=== PATIENT | female | born 1995 | race Hispanic/Latino ===

== ENCOUNTER → 2022-09-14 | Outpatient (CLI) | payer BC | END | disposition home or self-care (01) | LOC: SHCH 13:22 | PROVIDERS: ATTEND Student in an Organized Health Care Education/Training Program | DX: R07.9 Chest pain, unspecified (principal) | CPT/HCPCS: 93306 ==

== ENCOUNTER 2023-12-26 09:08 | Emergency (ER) | payer OTHER, BC ==
[~2023-12-26] VITALS: Ht 154.9 cm; Wt 43.1 kg
[2023-12-26] MEDS: morPHINE 2 MG SYG ONE (09:51)
[2023-12-26] MEDS: morPHINE 2 MG SYG IM ONE (09:51)
[2023-12-26] MEDS: ceFAZolin SODIUM 1 GM VIAL IVPB SCH (11:31)
[2023-12-26] MEDS ORDERED: CEPH500T PO (11:59)
[2023-12-26] MEDS: NEOMY SULF/BACITRA/POLYMYXIN B 1 EACH PACKET TP ONE (12:02)
[2023-12-26 12:04] VITALS: BP 110/67; PULSE 68; RESP 17; TEMP 98.2; O2SAT 100
[2023-12-26] MEDS: teTANUS/diphthERIA TOXOID [ADULT] 0.5 ML VIAL IM ONE ×2 (12:12→12:15)
== END 2023-12-26 12:51 | disposition home or self-care (01) ==
LOC: EDH 09:08
DX: S68.622A Partial traumatic transphalangeal amputation of right middle finger, initial encounter (principal); Z79.899 Other long term (current) drug therapy; Z98.890 Other specified postprocedural states; W26.8XXA Contact with other sharp object(s), not elsewhere classified, initial encounter; Y93.89 Activity, other specified; Y92.89 Other specified places as the place of occurrence of the external cause; Y99.8 Other external cause status
CPT/HCPCS: 99284; 96374; 90714; 73140; 90471; 96372; J0690; J2270